=== PATIENT | female | born 1960 | race Two or more races ===

== ENCOUNTER 2017-05-22 22:07 | Emergency (ER) | payer OTHER ==
[~2017-05-22] VITALS: Ht 157.5 cm; Wt 69.9 kg
[2017-05-22] MEDS ORDERED: LEXAPRO (22:19)
[2017-05-22] MEDS ORDERED: HCTZ (22:19)
[2017-05-22] MEDS ORDERED: predniSONE 20 MG TABLET PO ONE (23:30)
[2017-05-22] MEDS ORDERED: SULFAMETH/TRIMETH 800/160 MG TABLET PO ONE (23:30)
[2017-05-22 23:41] VITALS: BP 112/78
--- NOTE | 2017-05-22 23:41 | NUR ---
Patient discharged to home in stable conditon. Written and verbal after care instructions given. Patient verbalizes understanding of instructions.
[2017-05-22] MEDS ORDERED: SULFAMETH/TRIMETH 800/160 MG TABLET ONE (23:48)
[2017-05-22] MEDS ORDERED: predniSONE 10 MG TABLET ONE (23:48)
[2017-05-22] MEDS ORDERED: predniSONE 50 MG TABLET ONE (23:48)
== END 2017-05-22 23:59 | disposition home or self-care (01) ==
LOC: ER 22:16
DX: T63.441A Toxic effect of venom of bees, accidental (unintentional), initial encounter (principal); L03.116 Cellulitis of left lower limb; K21.9 Gastro-esophageal reflux disease without esophagitis; Z88.0 Allergy status to penicillin; I10 Essential (primary) hypertension; Y92.9 Unspecified place or not applicable
CPT/HCPCS: A4663; J7512

== ENCOUNTER 2017-05-23 01:44 | Emergency (ER) | payer OTHER ==
[~2017-05-23] VITALS: Ht 157.5 cm; Wt 69.9 kg
[~2017-05-23 01:44] MED LIST: HCTZ; LEXAPRO
--- NOTE | 2017-05-23 02:30 | NUR ---
Patient was seen here earlier for celluilitis of left foot.Came back for concern of bug growing inside left foot
--- NOTE | 2017-05-23 03:24 | NUR ---
Patient discharged to home in stable conditon. Written and verbal after care instructions given. Patient verbalizes understanding of instructions. Walked out opf ER with steady gait. No distress noted
[2017-05-23 03:25] VITALS: BP 145/89
== END 2017-05-23 03:25 | disposition home or self-care (01) ==
LOC: ER 01:44
DX: L03.116 Cellulitis of left lower limb (principal); I10 Essential (primary) hypertension; K21.9 Gastro-esophageal reflux disease without esophagitis; Z88.0 Allergy status to penicillin
CPT/HCPCS: 73590; 73630; 99284; A4663

== ENCOUNTER 2018-03-22 20:51 | Emergency (ER) | payer OTHER ==
[~2018-03-22] VITALS: Ht 157.5 cm; Wt 70.8 kg
[2018-03-22] MEDS: predniSONE 50 MG TABLET PO ONE (22:51)
[2018-03-22] MEDS ORDERED: predniSONE 50 MG TABLET ONE (22:53)
--- NOTE | 2018-03-22 23:25 | NUR ---
Sang nelson in [facility], [place] - 03/22/18 at 2333 by [id number] Patient discharged to home in stable conditon. Written and verbal after care instructions given. Patient verbalizes understanding of instructions.
--- NOTE | 2018-03-22 23:25 | NUR ---
DR HAWKINS MADE PATIENT AWARE OF TEST RESULTS MARÍA BE DC HOME.
--- NOTE | 2018-03-22 23:33 | NUR ---
Patient discharged to home in stable conditon. Written and verbal after care instructions given. Patient verbalizes understanding of instructions.
[2018-03-22 23:34] VITALS: BP 137/85
== END 2018-03-22 23:35 | disposition home or self-care (01) ==
LOC: ER 20:52
DX: J45.909 Unspecified asthma, uncomplicated (principal); I10 Essential (primary) hypertension; K21.9 Gastro-esophageal reflux disease without esophagitis; Z88.0 Allergy status to penicillin
CPT/HCPCS: 71045; A4663; J7512

== ENCOUNTER 2019-05-25 03:19 | Emergency (ER) | payer OTHER ==
[~2019-05-25] VITALS: Ht 162.6 cm; Wt 74.8 kg
--- NOTE | 2019-05-25 03:44 | NUR ---
Xray at bedside.
--- NOTE | 2019-05-25 04:10 | NUR ---
Dr. Conner at bedside for MSE.
[2019-05-25] MEDS ORDERED: IPRATROPIUM BROMIDE 0.5 MG/2.5 ML NEBU NEB ONE (04:30)
[2019-05-25] MEDS ORDERED: predniSONE 10 MG TABLET PO ONE (04:30)
[2019-05-25] MEDS ORDERED: ALBUTEROL SULFATE 2.5 MG/3 ML NEBU NEB ONE (04:30)
[2019-05-25] MEDS ORDERED: predniSONE 20 MG TABLET ONE (04:32)
[2019-05-25] MEDS ORDERED: IPRATROPIUM BROMIDE 0.5 MG/2.5 ML NEBU ONE (04:35)
[2019-05-25] MEDS ORDERED: ALBUTEROL SULFATE 2.5 MG/3 ML NEBU ONE (04:35)
--- NOTE | 2019-05-25 04:40 | NUR ---
Respiratory at bedside.
--- NOTE | 2019-05-25 05:30 | NUR ---
Patient discharged to home in stable conditon. Written and verbal after care instructions given. Patient verbalizes understanding of instructions. Pt ambulated out of ER with steady gait, no acute signs of distress, VSS, all belongings taken.
[2019-05-25 05:31] VITALS: BP 128/84
== END 2019-05-25 05:32 | disposition home or self-care (01) ==
LOC: ER 03:25
DX: J20.9 Acute bronchitis, unspecified (principal); I10 Essential (primary) hypertension; K21.9 Gastro-esophageal reflux disease without esophagitis; F41.9 Anxiety disorder, unspecified; Z88.0 Allergy status to penicillin; Z88.2 Allergy status to sulfonamides; Z88.8 Allergy status to other drugs, medicaments and biological substances; Z79.899 Other long term (current) drug therapy
CPT/HCPCS: 71046; 93005; 94640; 99283; J7512; A4663; J3590